=== PATIENT | female | born 1975 ===

== ENCOUNTER 2024-09-09 00:06 | Emergency (ER) | payer MEDICAID ==
[~2024-09-09] VITALS: Ht 160 cm; Wt 61.5 kg
[2024-09-09 00:23] VITALS: BP 142/65; PULSE 83; RESP 15; TEMP 96.8; O2SAT 98
== END 2024-09-09 01:44 | disposition left against medical advice (07) ==
LOC: ER 00:08
DX: R51.9 Headache, unspecified (principal); Z53.21 Procedure and treatment not carried out due to patient leaving prior to being seen by health care provider; W18.30XA Fall on same level, unspecified, initial encounter; Y93.89 Activity, other specified; Y92.89 Other specified places as the place of occurrence of the external cause; Y99.8 Other external cause status